=== PATIENT | male | born 2000 | race Hispanic/Latino ===

== ENCOUNTER 2022-02-06 01:10 | Emergency (ER) | payer OTHER, MEDICAID | END 2022-02-06 04:12 | disposition home or self-care (01) | LOC: CSHERS 01:10 | DX: S09.90XA Unspecified injury of head, initial encounter (principal); V49.10XA Passenger injured in collision with unspecified motor vehicles in nontraffic accident, initial encounter | CPT/HCPCS: 70450; 72125 ==